=== PATIENT | female | born 1975 | race Caucasian/White ===

== ENCOUNTER 2019-10-14 16:41 | Observation (INO) | payer MEDICAID ==
[~2019-10-14] VITALS: Ht 157.5 cm; Wt 74.5 kg
[2019-10-14] MEDS ORDERED: KLONOPIN0.5 MG PO (17:02)
[2019-10-14] MEDS ORDERED: TRAZODONE HCL150 MG PO (17:02)
[2019-10-14] MEDS ORDERED: ZANAFLEX2 M1 PO (17:03)
[2019-10-14 17:46] LABS: BASOPHILS 0.1 % (0-2); EOSINOPHILS 0.7 % (0-7); HEMATOCRIT 42.3 % (36.0-48.0); HEMOGLOBIN 14.6 g/dL (12-16); IMMATURE GRANULOCYTES 0.7 % (0-5); LYMPHOCYTES 12.3 % (15-50); MCH 31.4 pg (26.0-34.0); MCHC 34.5 g/dL (31.0-37.0); MEAN PLATELET VOLUME 10.3 fL (7.4-10.4); MONOCYTES 4.9 % (2-11); NEUTROPHILS 81.3 % (40-80); PLATELET COUNT 388 10x3/uL (130-400); RBC 4.65 10x6/uL (4.00-5.40); RDW 13.6 % (11.5-14.5); WBC 19.1 10x3/uL (4.8-10.8)
[2019-10-14 17:59] LABS: ANION GAP 12.3 mmol/L (8-16); CALCIUM 9.5 mg/dL (8.5-10.1); CARBON DIOXIDE 28.2 mmol/L (21.0-32.0); CREATININE - SERUM 1.1 mg/dL (0.6-1.3); POTASSIUM - SERUM 4.5 mmol/L (3.5-5.1)
[2019-10-14 18:01] LABS: APPEARANCE CLEAR (CLEAR); BILIRUBIN NEGATIVE (NEGATIVE); COLOR YELLOW (YELLOW); GLUCOSE NEGATIVE (NEGATIVE); KETONE NEGATIVE (NEGATIVE); NITRITE NEGATIVE (NEGATIVE); PROTEIN NEGATIVE (NEGATIVE); UROBILINOGEN NORMAL (NORMAL)
[2019-10-14 18:02] LABS: EPITHELIAL CELLS 0-5 /hpf (0-5)
[2019-10-14 18:03] LABS: BACTERIA FEW /hpf (NEGATIVE)
[2019-10-14 18:07] LABS: BILIRUBIN - TOTAL 0.4 mg/dL (0.2-1.3); PROTEIN - SERUM 7.5 g/dL (6.4-8.2)
--- NOTE | 2019-10-14 19:03 | NUR ---
HAND OFF REPORT GIVEN TO PAULA MERCADO
--- NOTE | 2019-10-14 19:15 | NUR ---
PT RETURNED FROM RADIOLOGY.
[2019-10-14 20:35] VITALS: BP 168/87
--- NOTE | 2019-10-14 21:14 | NUR ---
PT GIVEN SANDWICH AND WATER. DENIES ANY FURTHER NEEDS AT THIS TIME. WILL CONTINUE TO MONITOR.
[2019-10-14] MEDS ORDERED: ADVIL200 MG PO (21:48)
--- NOTE | 2019-10-14 22:27 | NUR ---
RECEIVED PT TO FLOOR VIA WHEELCHAIR. PT AMBULATED TO BED. BP 126/213 - PT C/O LEFT FLANK PAIN 10/. PT JUST RECEIVED FLUID BOLUS AND IV ANTIBIOTIC INFUSING ON TRANSFER. REVIEWED HOME MEDS AND HISTORY. GAVE MORPHINE 4MG IV PUSH. WILL REASSESS BP IN AN HOUR. LUNG SOUNDS ARE CLEAR, PT REPORTS NON-PRODUCTIVE COUGH AND SINUS DRAINAGE. GAVE PT SPRITE TO DRINK. NO OTHER NEEDS. WILL REASSESS AND CONTINUE TO MONITOR.
[2019-10-14 23:23] VITALS: BP 226/123; Ht 157.5 cm; Wt 74.5 kg
[2019-10-15] VITALS: BP 204/101
--- NOTE | 2019-10-15 00:02 | NUR ---
BP REASSESSED 204/101 - PAGED MORA YOST. GAVE HYDRALAZINE 10 IV PUSH PER TELEPHONE ORDER. NO OTHER NEEDS. WILL REASSESS AND CONTINUE TO MONITOR.
[2019-10-15 04:00] VITALS: BP 130/75
[2019-10-15 05:12] LABS: BASOPHILS 0.1 % (0-2); EOSINOPHILS 0.9 % (0-7); HEMATOCRIT 37.9 % (36.0-48.0); HEMOGLOBIN 12.8 g/dL (12-16); IMMATURE GRANULOCYTES 0.7 % (0-5); LYMPHOCYTES 12.1 % (15-50); MCH 30.9 pg (26.0-34.0); MCHC 33.8 g/dL (31.0-37.0); MCV 91.5 fL (80.0-100.0); MEAN PLATELET VOLUME 10.2 fL (7.4-10.4); MONOCYTES 6.5 % (2-11); NEUTROPHILS 79.7 % (40-80); RBC 4.14 10x6/uL (4.00-5.40); RDW 13.8 % (11.5-14.5); WBC 16.8 10x3/uL (4.8-10.8)
[2019-10-15 05:19] LABS: PLATELET COUNT 281 10x3/uL (130-400)
[2019-10-15 05:24] LABS: APTT 24.5 SECONDS (22.8-39.4); INR 1.07 (0.85-1.17); PROTIME 13.4 SECONDS (11.6-15.0)
[2019-10-15 05:30] LABS: ANION GAP 9.5 mmol/L (8-16); CARBON DIOXIDE 25.3 mmol/L (21.0-32.0); CREATININE - SERUM 0.9 mg/dL (0.6-1.3); MAGNESIUM - SERUM 1.9 mg/dL (1.8-2.4); PHOSPHOROUS 3.8 mg/dL (2.5-4.9)
[2019-10-15 05:34] LABS: POTASSIUM - SERUM 3.8 mmol/L (3.5-5.1)
--- NOTE | 2019-10-15 07:00 | NUR ---
RECEIVED REPORT. ASSUMED CARE OF PATIENT. RESTING WELL IN BED WITH EYES OPEN. RESP EVEN AND UNLABORED. SPOKE WITH DR. FRENCH AND HE WILL BE HERE AT 0900 FOR THE PROCEDURE, PATIENT AWARE.DENIES NEEDS. NO DISTRESS.
--- NOTE | 2019-10-15 07:15 | NUR ---
CONSENTS SIGNED AND ON THE CHART.
--- NOTE | 2019-10-15 08:29 | NUR ---
PREOPT FOR SURGERY.
[2019-10-15 08:33] LABS: HCG SERUM NEGATIVE (NEGATIVE)
[2019-10-15 09:05] VITALS: BP 147/85
--- NOTE | 2019-10-15 10:46 | NUR ---
PATIENT LEFT UNIT FOR PROCEDURE AND NOBODY WAS NOTIFIED THAT PATIENT WAS LEAVING THE UNIT. PATIENT NOW IN RECOVERY PER ORDERS POPULATING NEEDING TO BE ACKNOWLEDGED.
--- NOTE | 2019-10-15 11:04 | NUR ---
PATIENT HAD SEVERE DIARRHEA, NOTED BROWN LIQUID ON PERINEUM, WASH AREA THOROUGHLY BEFORE PREP, CONTINUED LIQUID BROWN STOOL COMING OUT, DR FRENCH AWARE OF THIS, AREA CLEANED THEN PREPPED, MATTHIEU.
--- NOTE | 2019-10-15 11:14 | NUR ---
RECEIVED REPORT FROM JOHNNY IN RECOVERY, PATIENT IS AWAKE AND DOING WELL. THERE IS NO STRING ON LEFT STENT THAT WAS PLACED. SAYS FROM HIS STANDPOINT, PATIENT IS ABLE TO GO HOME BUT THE PATIENT IS ADMITTED UNDER KENNEDY.
--- NOTE | 2019-10-15 11:45 | NUR ---
RECEIVED PATIENT BACK TO ROOM 2135 IN STABLE CONDITION. PATIENT WAKE, ALERT, AND ORIENTED. NO DISTRESS. DENIES NEEDS. BP 144/79 AND BP CHECKS EVERY 15 MONUTES.
[2019-10-15 16:11] VITALS: BP 166/87
--- NOTE | 2019-10-15 16:31 | NUR ---
MEDICATED FOR PAIN AND NAUSEA AT THIS TIME. NO DISTRESS.
--- NOTE | 2019-10-15 16:44 | NUR ---
PATIENT OOB AD SARKIS, REFUSED SCDS
--- NOTE | 2019-10-15 18:00 | NUR ---
PATIENT CHANGED HER MIND ABOUT THE SCDS AND BIALTERAL SCDS PLACED TO LOWER EXTREMITIES.
[2019-10-15 20:36] VITALS: BP 187/106
[2019-10-15 22:59] VITALS: BP 156/78
--- NOTE | 2019-10-15 23:55 | NUR ---
INITIAL ROUNS COMPLETED AT 1915 HRS. NO DISTRESS NOTED. TORADOL 15MG IVP GIVEN AT 1930 HRS. PT REQUESTS TO AMBULATE. IV DISCONNECTEDA ND SCD'S REMOVED. NO SKIN BREAKDOWN NOTED. ASSESSMENT COMPLETED AT 2100 HRS. IV TO LAC INFILTRATED. DC'D WITH CATHETER INTACT. LUNGS CTA. ALERT AND ORIENTED TO PERSON, PLACE AND TIME. HODGE. SCD'S PLACED BACK ON PT. NEW IV STARTEDA T 2250 HRS WITH ATTEMPT X2 #20 TO LFA. IV RESTARTED NS AT 100CC/HR. BP AT THAT TIME . PT CURRENTLY WATCHING TV. SR UP X2,CALL LIGHT WITHIN REACH.
[2019-10-16 00:27] VITALS: BP 172/84
--- NOTE | 2019-10-16 00:43 | NUR ---
HYDRALAZINE 10MG SIVP GIVEN FOR BP 172/84.
[2019-10-16 01:40] VITALS: BP 149/75
--- NOTE | 2019-10-16 01:42 | NUR ---
SCHEDULED TORADOL 15MG IVP GIVEN TO LFA. BP NO 149/75. CALL LIGHT WITHIN REACH.
--- NOTE | 2019-10-16 02:33 | NUR ---
IV UNHOOKED PER PT REQUEST. AMBULATING HALLS. GAIT EVEN AND STEADY.
--- NOTE | 2019-10-16 04:37 | NUR ---
PT RESTING WITH EYES CLOSED. RESP EVEN AND REGULAR. SR UP X2, CALL LIGHT WITHIN REACH.
[2019-10-16 04:45] VITALS: BP 191/80
[2019-10-16 05:31] VITALS: BP 170/83
--- NOTE | 2019-10-16 05:54 | NUR ---
BP RECHECKED WIT 170/83 RESULT. AM MEDS GIVEN. PT STATES TORADOL DOES NOT LAST THE WHOLE 6 HRS. NEEDS MET; WILL CONTINUE TO MONITOR.
[2019-10-16 06:32] LABS: BASOPHILS 0.1 % (0-2); EOSINOPHILS 0.2 % (0-7); HEMATOCRIT 36.8 % (36.0-48.0); HEMOGLOBIN 12.1 g/dL (12-16); IMMATURE GRANULOCYTES 0.5 % (0-5); MCH 30.5 pg (26.0-34.0); MCHC 32.9 g/dL (31.0-37.0); MCV 92.7 fL (80.0-100.0); MEAN PLATELET VOLUME 10.8 fL (7.4-10.4); MONOCYTES 5.5 % (2-11); NEUTROPHILS 84.7 % (40-80); PLATELET COUNT 309 10x3/uL (130-400); RBC 3.97 10x6/uL (4.00-5.40); WBC 15.2 10x3/uL (4.8-10.8)
[2019-10-16 06:47] LABS: ANION GAP 12.4 mmol/L (8-16); CALCIUM 7.6 mg/dL (8.5-10.1); CARBON DIOXIDE 23.3 mmol/L (21.0-32.0); CREATININE - SERUM 0.9 mg/dL (0.6-1.3); MAGNESIUM - SERUM 1.8 mg/dL (1.8-2.4); POTASSIUM - SERUM 3.7 mmol/L (3.5-5.1)
[2019-10-16 06:50] LABS: PHOSPHOROUS 2.5 mg/dL (2.5-4.9)
--- NOTE | 2019-10-16 07:10 | NUR ---
PT RESTING PEACEFULLY LYING IN BED. BREATHS EVEN, REGULAR AND UNLABORED. NO SINGS OR SYMPTOMS OF ACUTE DISTRESS NOTED AT THIS TIME. CL IN REACH, SRX2. NO FAMILY AT BEDSIDE.
[2019-10-16 08:28] VITALS: BP 170/97
[2019-10-16] MEDS ORDERED: LEVOFLOXACIN500 MG PO (16:30)
[2019-10-16] MEDS ORDERED: HYDROCODON-ACE1 EAC7 PO (16:37)
--- NOTE | 2019-10-16 17:22 | NUR ---
PT AMBULATED VIA OWN ACCORD, DENIES NEED FOR WHEELCHAIR. CL IN REACH, SRX2.
--- NOTE | 2019-10-17 08:46 | OP ---
PATIENT NAME: YAHAIRA SANTIZO MEDICAL RECORD: [id number] :71 LOCATION:D.M2 D.2135 ADMISSION DATE:10/14/19 SURGEON: DELMAR FRENCH MD DATE OF OPERATION: 10/15/2019 SURGEON: Delmar French MD ANESTHESIA: General anesthesia by Rigoberto Mata CRNA. DIAGNOSIS: Left renal stones 1.6 cm + 0.9 cm. PROCEDURES: Cystoscopy, left ureteral stent insertion 6-Sri Lankan x 24 cm without string attached. FINDINGS: Radiodense left renal stones. Single ureteral orifices bilaterally. No bladder tumors. BLOOD LOSS: None. CLINICAL HISTORY: This is a 44-year-old female with a previous history of kidney stones. She presented to the Emergency Room with left-sided flank pain. CT scan shows a large 1.6 cm stone obstructing the left UP junction. There is also a 9 mm nonobstructive stone in the left lower pole of the kidney. She comes now to have a left ureteral stent inserted to decompress the kidney. At a later date, we will perform left percutaneous nephrolithotomy on her to remove the stones. She was given Ancef manager contact to the OR. DESCRIPTION OF PROCEDURE: The patient was given induction of general anesthesia. She was placed in the lithotomy position and prepped and draped. It should be noted that the patient is having liquid diarrhea. We had to clean her out first before we could prep and drape her. The 21-Sri Lankan cystoscope with 30-degree lens was used for visualization. The left ureteral orifice was found. A Sensor wire was inserted into the left ureteral orifice and placed up into the left renal pelvis. A 6-Sri Lankan x 24 cm ureteral stent was then placed over the wire into the renal pelvis. Once the stent was in correct position, this wire was entirely removed. The distal end of the stent was pushed into the bladder using a pusher. The bladder was emptied through the cystoscope sheath. The scope was then removed. The string on the distal end of the stent had been removed. I did not want the stent to be inadvertently pulled out. The patient did go home today with pain medications. I will see her in followup next week to arrange for a left PCNL. TRANSINT:[id number] Voice Confirmation ID: [id number] DOCUMENT ID: [id number] DELMAR FRENCH MD at 0846 CC: [id number] DICTATION DATE: 10/15/19 1056 SAP BASIS CONSULTANT: 10/15/19 1256 DIS IN 10/16/19 [facility] [address] [place] [address]
--- NOTE | 2019-10-17 09:18 | MORECARE ---
CASE MANAGEMENT DISCHARGE SUMMARY PATIENT: YAHAIRA SANTIZO UNIT: [id number] ADM DATE: 10/14/19 AGE: 44 : 71 SEX: F ROOM/BED: D.2133 AUTHOR: FRANCISCA ROSAS PHYSICIAN: REFERRING PHYSICIAN: HEATH BENAVIDES MD DATE OF SERVICE: 10/17/19 Discharge Plan Patient Name: YAAHIRA SANTIZO Facility: [facility]:[place] : 1975 Planned Disposition: Home Anticipated Discharge Date: 10/16/19 Discharge Date: 10/16/2019 Expected LOS: 2 Initial Reviewer: [email or web address] Initial Review Date: 10/17/2019 Generated: 10/17/19 10:18 am Patient Name: YAHAIRA SANTIZO Page [id number] at 0918 All edits/amendments must be made on the electronic document DICTATION DATE: 10/17/19917 BALLOON DIPPER: CHRISTINA 10/17/19917 RPT#: [id number] DC DATE:10/16/19 STATUS: DIS IN [facility] [address] [place] [address] END OF REPORT
== END 2019-10-16 17:23 | disposition home or self-care (01) ==
LOC: D.ER 16:41 → D.M2 20:49 → OBSVTIME 21:00 → D.M2 10-16 17:23
PROVIDERS: Family Medicine; Urology; ADMIT Emergency Medicine; ATTEND Emergency Medicine
DX: N13.2 Hydronephrosis with renal and ureteral calculous obstruction (principal); N39.0 Urinary tract infection, site not specified; F17.203 Nicotine dependence unspecified, with withdrawal; F41.9 Anxiety disorder, unspecified

== ENCOUNTER 2019-11-15 05:50 | Inpatient (IN) | payer MEDICAID ==
[2019-11-14 09:37] LABS: BASOPHILS 0.2 % (0-2); EOSINOPHILS 2.9 % (0-7); HEMATOCRIT 42.1 % (36.0-48.0); HEMOGLOBIN 14.1 g/dL (12-16); IMMATURE GRANULOCYTES 0.5 % (0-5); LYMPHOCYTES 19.8 % (15-50); MCH 31.5 pg (26.0-34.0); MCHC 33.5 g/dL (31.0-37.0); MCV 94.2 fL (80.0-100.0); MEAN PLATELET VOLUME 9.8 fL (7.4-10.4); MONOCYTES 8.7 % (2-11); NEUTROPHILS 67.9 % (40-80); PLATELET COUNT 324 10x3/uL (130-400); RBC 4.47 10x6/uL (4.00-5.40); RDW 13.6 % (11.5-14.5); WBC 10.7 10x3/uL (4.8-10.8)
[2019-11-14 09:53] LABS: INR 0.92 (0.85-1.17); PROTIME 12.3 SECONDS (11.6-15.0)
[2019-11-14 09:56] LABS: ANION GAP 11.1 mmol/L (8-16); CALCIUM 8.6 mg/dL (8.5-10.1); CARBON DIOXIDE 26.9 mmol/L (21.0-32.0); CREATININE - SERUM 0.9 mg/dL (0.6-1.3)
[~2019-11-15] VITALS: Ht 157.5 cm; Wt 76.4 kg
--- NOTE | ~2019-11-15 | HEMODYNAMI ---
PATIENT:YAHAIRA SANTIZO MEDICAL RECORD: [id number] : 71 LOCATION:[address] ADMISSION DATE: 11/15/19 Generatedon:11/15/201914:01 Patient name: YAHAIRA SANTIZO Patient #: [id number] SSN: : 1975 Date of study: 11/15/2019 Page: Of Hemodynamic Procedure Report Patient Data Patient Demographics Procedure consent was obtained First Name: YAHAIRA Gender: Female Last Name: SUKHDEV : 1975 Middle Initial: TILA Age: 44 year(s) Patient #: [id number] Race: Unknown Additional ID: [id number] Contact details Address: [address] [place] [address] State: [place] City: [place] Zip code: [address] Past Medical History Allergies Allergen Reaction Date Comments Reported Other allergy 11/15/2019 loperamide/imodium Admission Admission Data Admission Date: 11/15/2019 Admission Time: 5:50 Room #: [facility] Procedure Procedure Types Cath Procedure Peripheral Cath Diagnostic Procedure Nephro Perc Neph Uret Cath Procedure Description Procedure Date Procedure Date: 11/15/2019 Procedure Start Time: 8:51 Procedure Staff Name Function Arie Duff RT Scrub Jabari Burger MD Performing Physician Kelsey Reilly RN Nurse Isis Hoffman RN Nurse NIKKI MCKEON RT Monitor Procedure Data Cath Procedure Fluoroscopy Diagnostic fluoroscopy Total fluoroscopy Time: 3.2 time: 3.2 min min Contrast Material Contrast Material Type Amount (ml) Isovue 300 54 Procedure Medications Medication Administration Route Dosage Heparin Flush Bag added to field 1 bags (1000units/500ml NS) Lidocaine 1% added to field 20 unlisted medication 1 Versed I.V. 2 mg Fentanyl I.V. 100 mcg Versed I.V. 1 mg Fentanyl I.V. 50 mcg Versed I.V. 1 mg Fentanyl I.V. 50 mcg Hemodynamics Rest Heart Rate: 68 (bpm) Snapshots Pre Cath Intra NCS Post Cath Vital Signs Time Heart Resp SPO2 etCO2 NIBP (mmHg) Rhythm Pain Sedation Rate (ipm) (%) (mmHg) Status Level (bpm) 8:34:19 66 19 100 33.9 177/98(157) NSR 0 (11) 10(A) , No pain 8:39:18 65 25 99 37 Measuring NSR 0 (11) 10(A) , No pain 8:39:56 67 22 100 34.7 173/101(151) NSR 0 (11) 10(A) , No pain 8:44:17 68 17 99 36.2 161/100(146) NSR 0 (11) 10(A) , No pain 8:48:37 63 21 100 33.2 167/98(143) NSR 0 (11) 10(A) , No pain 8:52:59 64 23 100 37.7 145/85(126) NSR 0 (11) 8(A) , No pain 8:57:15 65 15 99 40.7 149/86(125) NSR 0 (11) 8(A) , No pain 9:01:31 68 21 99 43.7 140/87(110) NSR 0 (11) 8(A) , No pain 9:05:43 72 20 98 12.8 151/89(130) NSR 0 (11) 8(A) , No pain 9:12:45 70 14 98 11.3 134/88(118) NSR 0 (11) 8(A) , No pain Medications Time Medication Route Dose Verified Delivered Reason Notes Effec tiveness by by 8:51:35 Heparin Flush added 1 Jabari Barboza used for Bag to bags Burger Burger procedure (1000units/500ml field MD LOBO NS) 8:51:46 Lidocaine 1% added 20ml Jabari Barboza for local to vial Burger Burger anesthetic field MD LOBO 8:52:11 cefepime ivpb 1 gm Jabari Cole Per Jennyfer Reilly RN physician 8:52:29 Versed I.V. 2 mg Jabari Cole for Burger Tommie MITCHELL sedation 8:52:42 Fentanyl I.V. 100 Jabari Cole for mcg Burger Tommie RN sedation 8:55:18 Fentanyl I.V. 50 Jabari Cole for mcg Burger Tommie RN sedation 8:55:55 Versed I.V. 1 mg Jabari Cole for Jennyfer Reilly RN sedation 9:01:52 Versed I.V. 1 mg Jabari Cole for Jennyfer Reilly RN sedation 9:02:02 Fentanyl I.V. 50 Jabari Cole for mcg Jennyfer Reilly RN sedation Procedure Log Time Note 7:42:40 Use device set IR Diagnostic 7:42:41 Bag Decanter (2002S) opened to sterile field. 7:42:42 Tegaderm 4 x 4 (1626W) opened to sterile field. 7:42:42 Sterile Angiographic Pack opened to sterile field. 7:58:41 KIT, INTRODUCER ACCUSTICK II W/C ([id number]) opened to sterile field. 7:58:41 GLIDE CATHETER 5FR ANGLED 65cm (CG507) opened to sterile field. 8:28:31 Kelsey Reilly RN sent for patient. Start room use. 8:28:33 Time tracking: Regular hours (M-F 7:00 - 5:00) 8:28:38 Plan of Care:Hemodynamics will remain stable., Cardiac rhythm will remain stable., Comfort level will be maintained., Respiratory function will remain adequate., Patient/ family verbilizes understanding of procedure., Procedure tolerated without complication., Recovers from procedure without complications.. 8:28:44 Patient received from Outpatients to IR Alert and oriented. Tansferred to table in Prone position. 8:28:47 Signed procedure consent form obtained from patient. 8:28:48 Warm blankets applied, and jasen hugger turned on for patient comfort. 8:28:49 Correct patient and procedure confirmed by team. 8:28:52 8:28:59 H&P Date Dictated: 11/15/2019 H&P Addendum completed by physician on day of procedure. (MUST COMPLETE FOR ALL OUTPATIENTS). 8:29:03 Pre-procedure instructions explained to patient. 8:29:05 Pre-op teaching completed and patient verbalized understanding. 8:29:12 Patient NPO since Midnight. 8:29:42 Patient allergic to Other allergyloperamide/imodium 8:29:44 Is the patient allergic to Iodine/contrast media? No. 8:29:50 Is patient on blood thinner?No 8:29:51 Patient diabetic? No. 8:29:58 8:30:00 ----Pre-sedation anethsthesia assessment.---- 8:30:04 Previous problem with sedation/anesthesia? No ? 8:30:05 Snore? No 8:30:06 Sleep apnea? No 8:30:08 Deviated septum? No 8:30:09 Opens mouth fully? Yes 8:30:10 Sticks out tongue? Yes 8:30:13 Airway obstruction? No ? 8:30:18 Dentures? Yes not in 8:30:53 IV patent on arrival in left hand with Lactated Ringers at [facility]. 8:31:21 Left Renal was prepped with chlora-prep and draped in sterile fashion. 8:31:25 8:33:07 Vital chart was started 8:33:08 Baseline sample Acquired. 8:33:12 Full Disclosure recording started 8:33:17 8:45:51 Physician arrived 8:46:07 --------ALL STOP TIME OUT------ 8:46:16 Final Timeout: patient, procedure, and site verified with staff and physician. All members of the team are in agreement. 8:46:25 Left Renal site verified by team. 8:50:34 Procedure started. 8:51:22 Local anesthetic to Left Renal area with Lidocaine 1% by Jabari Burger MD.INITIAL ACCESS ONLY 8:51:35 Heparin Flush Bag (1000units/500ml NS) 1 bags added to field was administered by Jabari Burger MD; used for procedure; Verbal order read back and verified. 8:51:46 Lidocaine 1% 20ml vial added to field was administered by Jabari Burger MD; for local anesthetic; Verbal order read back and verified. 8:52:11 cefepime 1 gm ivpb was administered by Kelsey Reilly RN; Per physician; Verbal order read back and verified. 8:52:29 Versed 2 mg I.V. was administered by Kelsey Reilly RN; for sedation; Verbal order read back and verified. 8:52:42 Fentanyl 100 mcg I.V. was administered by Kelsey Reilly RN; for sedation; Verbal order read back and verified. 8:55:18 Fentanyl 50 mcg I.V. was administered by Kelsey Reilly RN; for sedation; Verbal order read back and verified. 8:55:55 Versed 1 mg I.V. was administered by Kelsey Reilly RN; for sedation; Verbal order read back and verified. 9:00:18 NITINOL .018 80cm wire ([id number]) opened to sterile field. 9:01:29 GLIDE WIRE ANGLE 180cm ([id number]) opened to sterile field. 9:01:52 Versed 1 mg I.V. was administered by Kelsey Reilly RN; for sedation; Verbal order read back and verified. 9:02:02 Fentanyl 50 mcg I.V. was administered by Kelsey Reilly RN; for sedation; Verbal order read back and verified. 9:04:30 Procedure ended.(Physican Out) 9:04:57 Fluoroscopy time 03.20 minutes. 9:05:04 Contrast amount:Isovue 300 12 ml. 9:05:16 Post-op/insertion site Left Renal area dressed using a 4 x 4 and Tegaderm. 9:05:33 Post procedure instruction explained to patient.Patient verbalizes understanding. 9:05:35 Procedure and supply charges have been captured, reviewed, submitted and are correct. 9:15:18 Full Disclosure recording stopped Device Usage Item Name Manufacture Quantity Catalog Hospital Part Current Minimal Lot# / Number Charge Number Stock Stock Serial# Code Bag Decanter Microtek 1 [id number] 43452 [id number] 5 () Medical Inc. Sterile Cardinal 1 [id number] 5 Angiographic Health Pack Tegaderm 4 x 3M 1 1626W [id number] 535102 [id number] 5 4 (1626W) GLIDE Terumo 1 [id number] 993229 073932 5 CATHETER 5FR ANGLED 65cm (CG507) KIT, [place] 1 [id number] 110779 396630 412681 5 [id number] INTRODUCER Scientific ACCUSTICK II W/C ([id number]) NITINOL .018 Medtronic 1 [id number] 228693 [id number] 5 [id number] 80cm wire ([id number]) GLIDE WIRE Terumo 1 [id number] 594215 676446 729811 5 ANGLE 180cm ([id number]) Signature Audit [place] Stage Time Signature Unsigned Intra-Procedure 11/15/2019 NIKKI MCKEON RT NIKKI MCKEON RT (R) 9:15:07 AM (R) 11/15/2019 1:59:58 PM Intra-Procedure 11/15/2019 NIKKI MCKEON RT 2:01:07 PM (R) [address] [place] [address]
[~2019-11-15 05:50] MED LIST: ADVIL200 MG PO; HYDROCODON-ACE1 EAC7 PO; KLONOPIN0.5 MG PO; LEVOFLOXACIN500 MG PO; TRAZODONE HCL150 MG PO; ZANAFLEX2 M1 PO
[2019-11-15 06:19] VITALS: BP 156/83; BMI 30.8
[2019-11-15 13:19] VITALS: BP 151/77
--- NOTE | 2019-11-15 13:23 | NUR ---
RECEIVED PT TO ROOM 1207 VIA STRETCHER. PT A/O X4, C/O PAIN OF 10/10. ORIENTED PT TO ROOM AND CALL LIGHT. DRESSING TO LT FLANK AREA WITH A LITTLE OF BLOOD TO SITE. BLACK AND NEPHOSTOMY TUBE DRAINING BLOODY URINE. WILL ASSES PT AND START PLAN OF CARE.
[2019-11-15 14:12] VITALS: BP 151/77; Ht 157.5 cm; Wt 76.4 kg
--- NOTE | 2019-11-15 15:25 | OP ---
PATIENT NAME: YAHAIRA SANTIZO MEDICAL RECORD: [id number] :71 LOCATION:D.M3 D.1207 ADMISSION DATE: SURGEON: BIBIANA FRENCH MD DATE OF OPERATION: 11/15/2019 SURGEON: Bibiana French MD ANESTHESIA: General anesthesia by Bri Hobbs CRNA. DIAGNOSIS: Left renal stones, 16 mm and 9 mm. PROCEDURE: Left (PCNL) percutaneous nephrolithotomy. FINDINGS: Radiodense stones in the left kidney. SPECIMEN: Renal stone. BLOOD LOSS: Minimal. CLINICAL HISTORY: This is a 44-year-old female with a previous history of kidney stones. She came to the Emergency Room with left-sided flank pain. A CT scan shows a large 16 mm stone obstructing the left UP junction. There is also a 9 mm lower pole stone. She went to the OR to have a left ureteral stent inserted to decompress the kidney on 10/17/2019. Today, she comes to have a left PCNL to get rid of all the stones. SHE IS ALLERGIC TO IMODIUM. She was given Ancef admissions representative to the OR. DESCRIPTION OF PROCEDURE: The patient was given induction of general anesthesia in supine position on her stretcher. She was then placed in frog-leg position. Cystoscopy was performed. Her old ureteral stent on the left side was removed entirely and sent to pathology for identification only. The new nephroureteral stent that interventional radiology had placed earlier today had the distal end of it pulled out through the bladder urethral meatus. This allows us to clamp the Amplatz Super Stiff wire in the future in order to prevent loss of our access tract. A Lerma catheter was then placed into the bladder and put to bag drainage. She was then turned into the prone position on the Rafael frame. She was then prepped and draped. The nephroureteral catheter was accessed using an Amplatz Super Stiff wire. Once the distal end of the wire came out of the urethral catheter, the circulating nurse placed a hemostat on it. The nephroureteral catheter was then removed entirely. A small incision was made on each side of the wire. The dual lumen catheter was then introduced into the proximal ureter. Through the second lumen, we inserted a Sensor wire. This wire will be used as a safety wire. We will work over the Super Stiff wire. The dual lumen catheter was then removed, leaving the [address] The safety wire was clamped to the drapes. The NephroMax balloon was used and the tract was dilated with 20 atmospheres of pressure. The 30-Danish working sheath was then placed down into the renal pelvis. The stone is radiodense and we could target ourselves directly onto the stone. The stone was too large to remove directly with the basket. The Kittitian LithoClast ultrasonic modality was used to break the stone up into large chunks. Some of the larger chunks were removed using a basket. The smaller fragments were suctioned out using the Kittitian LithoClast ultrasonic modality. Eventually at the end of the procedure, there were no further visible stones radiographically or within the kidney on nephroscopy. The scope was removed. Over the Super Stiff wire, we inserted a 20-Danish nephrostomy tube. Once the nephrostomy tube was in position, the OPERATIVE REPORT [id number] YAHAIRA SANTIZO stylet of the nephrostomy tube was removed to allow the Malecot wings to expand. The wires were removed entirely. The working sheath was removed entirely. The nephrostomy tube was sutured to the skin using a 2-0 nylon suture. It was put to bag drainage. Dressings were applied and then the patient was awakened and brought to the recovery room. I will admit her for pain control and for management of the nephrostomy tube postoperatively. TRANSINT:[id number] Voice Confirmation ID: [id number] DOCUMENT ID: [id number] BIBIANA FRENCH MD at 1525 CC: [id number] DICTATION DATE: 11/15/19 1222 DECK STEWARD: 11/15/19 [id number] [place] [address]
--- NOTE | 2019-11-15 15:30 | NUR ---
PT RESTING COMFORTABLY IN BED WITH EYES CLOSED, NAD NOTED, CALL LIGHT IN REACH,W ILL CONTINUE TO MONITOR.
[2019-11-15 15:33] VITALS: BP 132/78
--- NOTE | 2019-11-15 17:12 | NUR ---
NORCO GIVEN FOR PAIN LEVEL OF 10/10. PT IN BED, EATING DINNER, DENIES ANY OTHER NEEDS AT THIS TIME. CALL LIGHT IN REACH, FAMILY AT BEDSIDE, NAD NOTED, WILL CONTINUE TO MONITOR.
[2019-11-15 20:09] VITALS: BP 125/73
--- NOTE | 2019-11-15 22:12 | NUR ---
EVENING ROUNDS COMPLETED. VSS, AAOX4, PARENT AT BEDSIDE. PT IN NO DISTRESS AT THIS TIME. DRESSING TO FLANK APPEARS C/D/I. BLOODY DRAINAGE NOTED ON NEPHROSTOMY BAG. BLACK INTACT AND DRAINING TO GRAVITY, URINE APPEARS PINKISH. PT DENIES ANY NEED FOR PAIN AT THIS TIME. WILL CPOC. CL WITHIN REACH.
[2019-11-16 00:23] VITALS: BP 127/65
[2019-11-16 06:05] VITALS: BP 136/78
--- NOTE | 2019-11-16 07:22 | NUR ---
3MG OF MORPINE GIVEN FOR PAIN LEVEL OF 10/10. PT A/O X4, RESP EVEN AND NONLABORED ON RA. BLACK CATHETER DRAINING YELLOW URINE TO GRAVITY. NEPHROSTOMY BAG DRAINING BLOODY URINE. PT DENIES ANY OTHER NEEDS AT THIS TIME. CALL LIGHT IN REACH, NAD NOTED,W ILL CONTINUE TO MONITOOR.
[2019-11-16 07:23] VITALS: BP 121/56
--- NOTE | 2019-11-16 11:21 | NUR ---
NORCO GIVEN FOR PAIN LEVEL OF 10/10. PT UP TO CHAIR, DENIES ANY OTHER NEEDS AT THIS TIME. CALL LIGHT IN REACH, NAD NOTED, WILL CONITNUE TO MONITOR.
[2019-11-16 12:03] VITALS: BP 148/89
[2019-11-16 16:20] VITALS: BP 131/74
--- NOTE | 2019-11-16 19:45 | NUR ---
EVENING ROUNDS COMPLETED. VSS, AAOX4, FAMILY AT BEDSIDE. NEPHROSTOMY DRESSING C/D/I AND DRAINING TO GRAVITY. PT C/O PAIN AT THE SITE, ALTHOUGH NO S/S OF REDNESS OR SWELLING. PRN MORPHINE GIVEN. PT DENIES ANY FURTHER NEEDS AT THIS TIME. WILL CPOC. CL WITHIN REACH.
[2019-11-16 20:17] VITALS: BP 171/88
[2019-11-17 00:34] VITALS: BP 148/80
[2019-11-17 06:40] VITALS: BP 142/75
--- NOTE | 2019-11-17 07:10 | NUR ---
REPORT RECEIVED FROM SPINNER FIXER AND PATIENT CARE ASSUMED. ENTERED PATIENTS ROOM AND PATIENT NOT PRESENT. FAMILY MEMBER IN ROOM STATES THAT PATIENT IS OUTSIDE SMOKING. WILL MONITOR PATIENT UPON RETURN.
[2019-11-17 07:21] VITALS: BP 172/100
--- NOTE | 2019-11-17 07:30 | NUR ---
PATIENT RETURNED TO ROOM. PATIENT IS STABLE AND VS. PATIENT DENIES ANY NEEDS OR PAIN. WILL CONTINUE WITH PLAN OF CARE. FAMILY MEMBER AT BS. SR UPX 2 BED IN LOW POSITION AND CALL LIGHT IN REACH.
--- NOTE | 2019-11-17 12:37 | MORECARE ---
CASE MANAGEMENT DISCHARGE SUMMARY PATIENT: YAHAIRA SANTIZO UNIT: [id number] ADM DATE: 11/15/19 AGE: 44 : 71 SEX: F ROOM/BED: D.1207 AUTHOR: FRANCISCA ROSAS PHYSICIAN: REFERRING PHYSICIAN: BIBIANA FRENCH MD DATE OF SERVICE: 11/17/19 Discharge Plan Patient Name: YAHAIRA SANTIZO Facility: [facility]:[place] : 1975 Planned Disposition: Home Anticipated Discharge Date: 11/17/19 Discharge Date: Expected LOS: 2 Initial Reviewer: [email or web address] Initial Review Date: 11/17/2019 Generated: 11/17/19 1:36 pm Patient Name: YAHAIRA SANTIZO Page [id number] at 1237 All edits/amendments must be made on the electronic document DICTATION DATE: 11/17/19 1236 CLINICAL TEAM LEAD: CHRISTINA 11/17/19 1236 RPT#: [id number] DC DATE: STATUS: ADM IN [facility] [address] [place] [address] END OF REPORT
--- NOTE | 2019-11-17 12:43 | MORECARE ---
CASE MANAGEMENT DISCHARGE SUMMARY PATIENT: YAHAIRA SANTIZO UNIT: [id number] ADM DATE: 11/15/19 AGE: 44 : 71 SEX: F ROOM/BED: D.1207 AUTHOR: FRANCISCA ROSAS PHYSICIAN: REFERRING PHYSICIAN: BIBIANA FRENCH MD DATE OF SERVICE: 11/17/19 Discharge Plan Patient Name: YAHAIRA SANTIZO Facility: [facility]:[place] : 1975 Planned Disposition: Home Anticipated Discharge Date: 11/17/19 Discharge Date: Expected LOS: 2 Initial Reviewer: [email or web address] Initial Review Date: 11/17/2019 Generated: 11/17/19 1:43 pm DCPIA - Discharge Planning Initial Assessment Updated by [email or web address]: Tomasz Pal on 11/17/19 12:38 pm * Is the patient Alert and Oriented? Yes * How many steps to enter\exit or inside your home? * PCP DR. MCCLELLAND * Pharmacy [facility] * Preadmission Environment Home with Family * ADLs Independent * Equipment None * Other Equipment NO MEDICAL EQUIPMENT PROVIDER PREFERENCE * List name and contact numbers for known caregivers / representatives who currently or will assist patient after discharge: ULYSSES AVITIA, AUNT, * Verbal permission to speak to the caregivers and representatives has been obtained from the patient. N/A * Community resources currently utilized None * Please name any agencies selected above. NONE * Additional services required to return to the preadmission environment? No * Can the patient safely return to the preadmission environment? Yes * Has this patient been hospitalized within the prior 30 days at any hospital? No Last DP export: 11/17/19 11:37 a Patient Name: YAHAIRA SANTIZO Page [id number] at 1243 All edits/amendments must be made on the electronic document DICTATION DATE: 11/17/191242 LIVESTOCK FARMWORKER: CHRISTINA 11/17/19 1243 RPT#: [id number] DC DATE: STATUS: ADM IN [facility] [address] [place] [address] END OF REPORT
--- NOTE | 2019-11-17 12:51 | MORECARE ---
CASE MANAGEMENT DISCHARGE SUMMARY PATIENT: YAHAIRA SANTIZO UNIT: [id number] ADM DATE: 11/15/19 AGE: 44 : 71 SEX: F ROOM/BED: D.1207 AUTHOR: ALISON,DOC PHYSICIAN: REFERRING PHYSICIAN: BIBIANA FRENCH MD DATE OF SERVICE: 11/17/19 Discharge Plan Patient Name: YAHAIRA SANTIZO Facility: [facility]:[place] : 1975 Planned Disposition: Home Anticipated Discharge Date: 11/17/19 Discharge Date: Expected LOS: 2 Initial Reviewer: [email or web address] Initial Review Date: 11/17/2019 Generated: 11/17/19 1:51 pm Comments DCP- Discharge Planning Updated by [email or web address]: Tomasz Pal on 11/17/19 11:[address] Patient Name: YAHAIRA SANTIZO Encounter No: [id number] : 1975 Primary Insurance: [place] [employer] [facility] Anticipated DC Date: 11-17-2019 Planned Disposition: Home DISCHARGE PLANNING note: CM MET WITH PT IN ROOM TO DISCUSS DISCHARGE PLANNING AND NEEDS. PT REPORTS LIVING AT HOME INDEPENDENTLY WITH HER AUNT. PT HAS NO MEDICAL EQUIPMENT AND NO OUTSIDE SERVICES ASSISTING IN THE HOME. CM DISCUSSED AVAILABILITY OF HOME HEALTH, REHAB SERVICES AND MEDICAL EQUIPMENT. PT DENIES DISCHARGE NEEDS, REPORTS HER FATHER WILL PICK HER UP FOR DISCHARGE HOME. Tomasz Pal, CASE MANAGEMENT DCPIA - Discharge Planning Initial Assessment Updated by [email or web address]: Tomasz Pal on 11/17/19 12:38 pm * Is the patient Alert and Oriented? Yes * How many steps to enter\exit or inside your home? * PCP DR. MCCLELLAND * Pharmacy [facility] * Preadmission Environment Home with Family * ADLs Independent * Equipment None * Other Equipment NO MEDICAL EQUIPMENT PROVIDER PREFERENCE * List name and contact numbers for known caregivers / representatives who currently or will assist patient after discharge: ULYSSES AVITIA, AUNT, * Verbal permission to speak to the caregivers and representatives has been obtained from the patient. N/A * Community resources currently utilized None * Please name any agencies selected above. NONE * Additional services required to return to the preadmission environment? No * Can the patient safely return to the preadmission environment? Yes * Has this patient been hospitalized within the prior 30 days at any hospital? No Last DP export: 11/17/19 11:43 a Patient Name: YAHAIRA SANTIZO Page [id number] at 1251 All edits/amendments must be made on the electronic document DICTATION DATE: 11/17/19 125 ORTHOPEDIC NURSE PRACTITIONER: CHRISTINA 11/17/19 1251 RPT#: [id number] DC DATE: STATUS: ADM IN [facility] [address] [place] [address] END OF REPORT
== END 2019-11-17 13:15 | disposition home or self-care (01) | DRG 661 ==
LOC: D.SP 05:50 → D.M3 05:50 → D.SP 08:00 → D.PAN 08:00 → D.M3 12:09 → D.PAN 12:45 → D.OPS 12:45 → D.SP 12:55 → D.M3 12:55
PROVIDERS: Specialist; ADMIT Urology; ATTEND Urology
PROC: 0TP93DZ Removal of Intraluminal Device from Ureter, Percutaneous Approach (ICD-10-PCS; 2019-11-15)
PROC: 0TC13ZZ Extirpation of Matter from Left Kidney, Percutaneous Approach (ICD-10-PCS; principal; 2019-11-15 08:00)
DX: N20.0 Calculus of kidney (principal); G89.18 Other acute postprocedural pain

== ENCOUNTER → 2019-11-30 23:41 | Outpatient (CLI) | payer MEDICAID ==
[2019-11-15 14:12] VITALS: BMI 30.8
== END | disposition home or self-care (01) ==
LOC: D.LABREF 23:41
PROVIDERS: ATTEND Urology
DX: R31.9 Hematuria, unspecified (principal)